=== PATIENT | female | born 1995 ===

== ENCOUNTER 2021-05-30 23:10 | Emergency (ER) | payer BC, OTHER ==
[~2021-05-30] VITALS: Ht 165.1 cm; Wt 68.0 kg
[2021-05-30 23:28] LABS: *BILIRUBIN,URIN NEGATIVE (NEGATIVE); *BLOOD, URINE 3+ (NEGATIVE); *CLARITY,URINE SLIGHTLY CLOUDY (CLEAR); *COLOR,URINE YELLOW (YELLOW); *KETONES,URINE NEGATIVE (NEGATIVE); *UROBILINOGEN,URINE 0.2 E.U./dl (NORMAL); LEUKOCYTE ESTERASE ,URINE 3+ (NEGATIVE); NITRITE, URINE NEGATIVE (NEGATIVE); UGLUCOSE NEGATIVE (NEGATIVE)
[2021-05-30 23:39] LABS: *URINE HCG, QUAL NEGATIVE (NEGATIVE); BACTERIA,URINE MODERATE /HPF (NONE SEEN); RBC,URINE 20-50 /HPF (0-3); SQUAMOUS EPITHELIAL CELL,UR FEW /HPF (NONE SEEN); WBC,URINE 20-50 /HPF (0-3)
[2021-05-31] MEDS ORDERED: CEPH500C2 PO (00:40)
[2021-05-31] MEDS ORDERED: PHEN95TA44 PO (00:40)
[2021-05-31] MEDS ORDERED: PHENAZOPYRIDINE HCL 100 MG TABLET PO ONE (00:45)
[2021-05-31] MEDS ORDERED: CEFTRIAXONE 1 G VIAL IM ONE (00:45)
[2021-05-31] MEDS ORDERED: PHENAZOPYRIDINE HCL 100 MG TABLET ONE (00:53)
[2021-05-31] MEDS ORDERED: LIDOCAINE HCL 1% 20 ML VIAL ONE (00:53)
[2021-05-31] MEDS ORDERED: CEFTRIAXONE 1 G VIAL ONE (00:53)
--- NOTE | 2021-05-31 00:54 | NUR ---
Patient discharged to home in stable condition. Written and verbal after care instructions given. Patient verbalizes understanding of instructions. Stressed follow up or return to ER for worsening s/s.
[2021-05-31 00:55] VITALS: BP 120/80
== END 2021-05-31 00:55 | disposition home or self-care (01) ==
LOC: ER 23:10
DX: N30.00 Acute cystitis without hematuria (principal)
CPT/HCPCS: 81001; 84703; 87086; 96372; 99283; J0696; J3490; 87077; A4663

== ENCOUNTER 2022-01-03 12:31 | Outpatient (CLI) | payer BC, OTHER ==
[~2022-01-03 12:31] MED LIST: CEPH500C2 PO; PHEN95TA44 PO
== END 2022-01-03 23:59 | disposition home or self-care (01) ==
LOC: US 12:31
PROVIDERS: ATTEND Obstetrics & Gynecology
DX: O34.11 Maternal care for benign tumor of corpus uteri, first trimester (principal); Z3A.01 Less than 8 weeks gestation of pregnancy
CPT/HCPCS: 70030-TC